=== PATIENT | male | born 1995 | race Caucasian/White ===

== ENCOUNTER 2021-03-31 19:07 | Emergency (ER) | payer OTHER ==
[~2021-03-31] VITALS: Ht 170.2 cm; Wt 63.5 kg
[2021-03-31 19:29] VITALS: Ht 170.2 cm; Wt 63.5 kg
[2021-03-31 22:24] VITALS: BP 130/86
== END 2021-03-31 22:15 | disposition home or self-care (01) ==
LOC: D.ER 19:07
DX: R51.9 Headache, unspecified (principal); S06.0X0A Concussion without loss of consciousness, initial encounter